=== PATIENT | female | born 1965 | race Caucasian/White ===

== ENCOUNTER 2019-03-30 20:42 | Emergency (ER) | payer OTHER ==
[~2019-03-30] VITALS: Ht 162.6 cm; Wt 70.8 kg
[2019-03-30 20:52] VITALS: Ht 162.6 cm; Wt 70.8 kg
[2019-03-30 23:11] VITALS: BP 126/87
== END 2019-03-30 23:11 | disposition home or self-care (01) ==
LOC: ED 20:42
DX: M54.5 Low back pain (principal); G89.29 Other chronic pain; Z86.19 Personal history of other infectious and parasitic diseases; Z59.0 Homelessness
CPT/HCPCS: J1885

== ENCOUNTER 2020-06-01 06:02 | Emergency (ER) | payer MEDICAID ==
[~2020-06-01] VITALS: Ht 162.6 cm; Wt 54.9 kg
[2020-06-01 06:08] VITALS: Ht 162.6 cm; Wt 54.9 kg
[2020-06-01 09:43] VITALS: BP 97/51
== END 2020-06-01 09:43 | disposition home or self-care (01) ==
LOC: ED 06:02
DX: M54.41 Lumbago with sciatica, right side (principal); T76.21XA Adult sexual abuse, suspected, initial encounter
CPT/HCPCS: J1885